=== PATIENT | male | born 1960 ===

== ENCOUNTER 2016-09-10 21:04 | Emergency (ER) | payer SELFPAY ==
[~2016-09-10 21:04] MED LIST: MUCINEX600 M1 PO; NO HOME MEDICATION XX; ZITHROMAX250 M1 PO
[2016-09-10] MEDS ORDERED: ULTRAM50 M1 PO (21:57)
[2016-09-10] MEDS ORDERED: FLOMAX0.4 M1 PO (22:02)
[2016-09-10] MEDS ORDERED: CYCLOBENZAPRINE5 M1 PO (22:05)
== END 2016-09-10 22:45 ==
LOC: EDMED 21:04
PROC: 0T9B70Z Drainage of Bladder with Drainage Device, Via Natural or Artificial Opening (ICD-10-PCS; principal; 2016-09-10)
DX: Z46.6 Encounter for fitting and adjustment of urinary device (principal); F17.210 Nicotine dependence, cigarettes, uncomplicated